=== PATIENT | male | born 1955 | race Caucasian/White ===

== ENCOUNTER 2017-05-18 14:34 | Emergency (ER) | payer OTHER ==
[~2017-05-18] VITALS: Ht 188 cm; Wt 81.8 kg
[2017-05-18 14:45] VITALS: BP 166/91; TEMP 100.7
[2017-05-18 17:17] LABS: BASO # 0.1 (0.0-0.2); BASO % 0.8 % (0.0-2.0); EOS % 0.5 % (0-4.0); GRAN % 64.4 % (42.2-75.2); HEMATOCRIT 45.8 % (42.0-52.0); LYMPH # 1.3 (1.2-3.4); MEAN CELL VOLUME 94 fl (80.0-100.0); MEAN CORPUSCULAR HEMOGLOBIN 33 pg (27.0-31.0); MEAN CORPUSCULAR HGB CONC 35 g/dl (33.0-37.0); MEAN PLATELET VOLUME 8.9 fl (7.4-10.4); MONO # 0.8 (0.1-0.6); PLATELET COUNT 211 K/mm3 (130-400); RED BLOOD COUNT 4.87 M/mm3 (4.20-5.60); WHITE BLOOD COUNT 6.2 K/mm3 (4.8-10.8)
[2017-05-18 17:27] LABS: ADJUSTED CALCIUM 8.5 mg/dL (8.4-10.2); ALANINE AMINOTRANSFERASE 132 U/L (21-72); ALBUMIN 5.1 gm/dL (3.5-5.0); ALKALINE PHOSPHATASE 98 U/L (50-136); ANION GAP 13 mmol/L (7-16); BILIRUBIN,TOTAL 0.9 mg/dL (0.0-1.0); BLOOD UREA NITROGEN 15 mg/dL (9-20); CALCIUM 9.4 mg/dL (8.4-10.2); CARBON DIOXIDE 25 mmol/L (22-30); CHLORIDE 101 mmol/L (98-107); CREATININE, serum 1.24 mg/dL (0.66-1.25); GLUCOSE 98 mg/dL (74-106); POTASSIUM 4.2 mmol/L (3.4-5.0); SODIUM 138 mmol/L (137-145); TOTAL PROTEIN 8.7 gm/dL (6.4-8.2)
[2017-05-18] MEDS ORDERED: CEPHALEXIN500 M1 PO (17:32)
[2017-05-18 17:38] LABS: TROPONIN-I < 0.012 ng/mL (0.000-0.034)
[2017-05-18 18:15] VITALS: PULSE 82
== END 2017-05-18 18:15 | disposition home or self-care (01) ==
LOC: COL.ER 14:34
PROVIDERS: Family Medicine
DX: S61.211A Laceration without foreign body of left index finger without damage to nail, initial encounter (principal); W18.39XA Other fall on same level, initial encounter; W26.0XXA Contact with knife, initial encounter

== ENCOUNTER 2017-05-28 09:50 | Emergency (ER) | payer OTHER ==
[~2017-05-28 09:50] MED LIST: CEPHALEXIN500 M1 PO
[2017-05-28 10:13] VITALS: BP 122/84; PULSE 94; TEMP 98.6
== END 2017-05-28 10:18 | disposition home or self-care (01) ==
LOC: COL.ER 09:50
DX: S61.211D Laceration without foreign body of left index finger without damage to nail, subsequent encounter (principal)